=== PATIENT | male | born 1990 | race Caucasian/White ===

== ENCOUNTER 2024-03-03 03:27 | Emergency (ER) | payer SELFPAY ==
[~2024-03-03] VITALS: Ht 180.3 cm; Wt 122.7 kg
[2024-03-03 03:28] VITALS: BP 145/108; PULSE 114; RESP 18; TEMP 98.1; O2SAT 97
== END 2024-03-03 03:55 ==
LOC: ER 03:28
DX: Z04.1 Encounter for examination and observation following transport accident (principal); F10.90 Alcohol use, unspecified, uncomplicated; V47.3XXA Unspecified car occupant injured in collision with fixed or stationary object in nontraffic accident, initial encounter; Y93.89 Activity, other specified; Y92.89 Other specified places as the place of occurrence of the external cause; Y99.8 Other external cause status
CPT/HCPCS: 99283